=== PATIENT | male | born 1955 | race Caucasian/White ===

== ENCOUNTER 2019-02-02 22:42 | Emergency (ER) | payer BC ==
[~2019-02-02] VITALS: Ht 185.4 cm; Wt 131.8 kg
[~2019-02-02 22:42] MED LIST: DIOVAN160 MG OR; GLUCOPHAGE500 MG OR; HYDROCHLOROT12.5 MG OR
[2019-02-02 23:40] LABS: HEMATOCRIT 39.8 % (39.0-50.0); HEMOGLOBIN 12.7 g/dl (14.0-18.0); IMMATURE GRANULOCYTES 0.9 % (0.0-5.0); MEAN CELL VOLUME 83.1 fL CALC (80.0-100.0); MEAN CORPUSCULAR HGB 26.5 pG CALC (26.0-32.0); MEAN CORPUSCULAR HGB CONC 31.9 g/L CALC (32.0-36.0); NEUT# 5.08 thou/uL (1.82-7.42); RED BLOOD COUNT 4.79 mill/uL (4.70-6.10); RED CELL DISTRI WIDTH 14.5 % (11.5-15.5)
[2019-02-02 23:41] LABS: URINE BILIRUBIN - DIPSTICK NEGATIVE (NEGATIVE); URINE BLOOD DIPSTICK MODERATE (NEGATIVE); URINE COLOR YELLOW; URINE GLUCOSE - DIPSTICK NEGATIVE (NEGATIVE); URINE KETONE NEGATIVE (NEGATIVE); URINE NITRITE - DIPSTICK NEGATIVE (Negative); URINE PROTEIN - DIPSTICK 30 mg/dL (NEG-TRACE); URINE UROBILINOGEN - DIPSTICK 0.2 E.U./dL (0.2)
[2019-02-02 23:42] LABS: URINE LEUK ESTERASE LARGE (NEGATIVE)
[2019-02-02 23:48] LABS: URINE SQUAMOUS EPITHELIAL CELL FEW EPI/hpf (0-FEW); URINE WBC 50-100 WBC/hpf (0-5)
[2019-02-02 23:52] LABS: ALBUMIN 3.6 g/dL (3.2-5.0); BILIRUBIN, TOTAL 0.4 mg/dL (0.0-1.4); BUN 12 mg/dL (8-23); BUN/CREATININE RATIO 11 (12-20 (CALC)); CARBON DIOXIDE 24 mmol/l (22-30); CHLORIDE 106 mmol/l (95-108); CREATININE 1.1 mg/dL (0.7-1.3); GFR > 60 ML/MIN (>=60 (CALC)); GFR FOR AFR.AMER. > 60 ML/MIN (>=60 (CALC)); SGOT/AST 21 u/l (19-48); SODIUM 139 mmol/l (137-146); TOTAL PROTEIN 6.3 g/dL (6.3-8.2)
[2019-02-02 23:53] LABS: ALKALINE PHOSPHATASE 83 u/l (38-126); ANION GAP 13 (6-22 (CALC)); POTASSIUM 3.5 mmol/l (3.5-5.1)
[2019-02-03] MEDS ORDERED: BACTRIM DS1 TAB PO (00:17)
[2019-02-03 00:23] VITALS: BP 128/72
== END 2019-02-03 00:28 | disposition home or self-care (01) | DRG 690 ==
LOC: ED 22:42
PROVIDERS: Family Medicine
DX: N39.0 Urinary tract infection, site not specified (principal); B96.20 Unspecified Escherichia coli [E. coli] as the cause of diseases classified elsewhere; R50.9 Fever, unspecified; R51 Headache; Z98.890 Other specified postprocedural states